=== PATIENT | male | born 1985 | race African-American/Black ===

== ENCOUNTER 2020-08-22 05:44 | Emergency (ER) | payer OTHER ==
[~2020-08-22] VITALS: Ht 185.4 cm; Wt 77.1 kg
[2020-08-22 05:51] VITALS: BP 130/81
--- NOTE | 2020-08-22 05:51 | NUR ---
TO BED AMBULATORY
[2020-08-22] MEDS ORDERED: BACITRACIN OINT 500 UNITS/GM PKT TP ONE (06:00)
[2020-08-22] MEDS ORDERED: LIDOCAINE MPF 1% 10 MG/ML VIAL INJ ONE (06:00)
--- NOTE | 2020-08-22 06:09 | NUR ---
Dr. Morton examining patient.
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
--- NOTE | 2020-08-22 06:25 | NUR ---
OSVALDO AMADO AT BEDSIDE DOING LAC REPAIR PROCEDURE.
--- NOTE | 2020-08-22 06:41 | NUR ---
JOSE ALFREDO MIGUEL AND AMANAD JANE AT BEDSIDE
--- NOTE | 2020-08-22 06:42 | NUR ---
[place] PD ARRIVED AND IS AT PTS BEDSIDE.
[2020-08-22] MEDS ORDERED: IBUP-2213 PO (07:10)
[2020-08-22] MEDS ORDERED: ACET-8386 PO (07:10)
--- NOTE | 2020-08-22 07:14 | NUR ---
GAVE REPORT TO BERNADETTE GONZALEZ. ENDORSED CARE AT THIS TIME.
[2020-08-22 08:58] VITALS: BP 128/80
--- NOTE | 2020-08-22 08:59 | NUR ---
PT DISCHARGED IN CUSTODY OF [facility] DEPT. PT DISCHARGED WITH PAPERWORK AND PRESCRIPTION OF HYDROCODONE AND IBUPROFEN. VERBALIZES UNDERSTANDING OF D/C PAPERWORK. ALL VITALS STABLE UPON DISCHARGE.
== END 2020-08-22 08:59 ==
LOC: MED 05:44
DX: S61.411A Laceration without foreign body of right hand, initial encounter (principal); X99.1XXA Assault by knife, initial encounter; Y93.89 Activity, other specified; Y92.89 Other specified places as the place of occurrence of the external cause; Y99.8 Other external cause status
CPT/HCPCS: 12002; 99283; J2001